=== PATIENT | female | born 1945 | race Caucasian/White ===

== ENCOUNTER → 2023-04-01 | Outpatient (CLI) | payer MEDICARE, SELFPAY ==
[2023-04-01 17:34] LABS: Absolute Lymphocyte Count 2.53 X10^3/uL (0.83-4.51); Absolute Neutrophil Count 7.1 X10^3/uL (2.0-7.7); Basophil# 0.06 X10^3/uL; Basophil% 0.6 % (0-1); Eosinophil# 0.29 X10^3/uL; Eosinophils% 2.7 % (0-5); Hematocrit 47.8 % (37-47); Hemoglobin 14.9 g/dL (12.0-15.0); Lymphocyte # 2.53 X10^3/ul (0.83-4.51); Lymphocyte % 23.5 % (19-41); Mean Corp Hgb Conc 31.2 g/dL (32-36); Mean Corpuscular Hgb 28.7 pg (27.0-32.0); Mean Corpuscular Volume 91.9 fL (81-99); Mean Platelet Vol. 9.5 fl (6.2-12.0); Monocyte# 0.73 X10^3/uL; Monocyte% 6.8 % (0-10); NRBC Flagged by Analyzer 0 % (0-5); Neutrophil # 7.07 X10^3/uL (2.7-7.7); Neutrophil % 65.6 % (47-70); Platelet Count 364 K/mm3 (150-450); RBC Distribution Width CV 13.7 % (11.6-14.6); RBC Distribution Width SD 46.4 fl (35.1-43.9); White Blood Count 10.8 K/mm3 (4.4-11.0)
[2023-04-01 17:55] LABS: Erythrocyte Sedimentation Rate 42 mm/hr (0-30)
== END | disposition home or self-care (01) ==
LOC: MTLAB 16:14
PROVIDERS: Referring Provider Ophthalmology; Visit Provider Ophthalmology
DX: H35.62 Retinal hemorrhage, left eye (principal)
CPT/HCPCS: 36415; 85025; 85652; 86140

== ENCOUNTER → 2024-10-21 | Outpatient (CLI) | payer MEDICARE, SELFPAY ==
[2024-10-21 18:26] LABS: ALB/GLOB Ratio 1.2 RATIO (0.9-2.4); AST(SGOT) 15 U/L (<=31); Alanine Aminotransfer ALT/SGPT 12 U/L (<=34); Albumin, Serum 3.7 g/dL (3.4-4.8); Alkaline Phosphatase 74 U/L (35-104); Anion Gap 11 (5-15); BUN 24 mg/dL (4-19); BUN/Creat Ratio 18.6 RATIO (10-20); Calcium,Total 8.9 mg/dL (7.6-11.0); Carbon Dioxide 25.4 mmol/L (21.0-32.0); Chloride 104 mmol/L (98-108); Cholesterol 137 mg/dL (<=200); Creatinine, Serum 1.28 mg/dL (0.70-1.20); EST Glomerular Filtration Rate 42 (>60); Globulin 3.1 g/dL (2.2-4.2); Glucose 85 mg/dL (70-99); High Density Lipoprotein 45 mg/dL; Low Density Lipoprotein Calc. 71 mg/dL; Potassium 4.1 mmol/L (3.3-5.1); Protein, Total 6.8 g/dL (5.9-8.4); Sodium Level 140 mmol/L (133-145); Total Bilirubin 0.17 mg/dL (0.00-1.30); Triglycerides 106 mg/dL; Very Low Density Lipoprotein 21 mg/dL (5-40); cholesterol:hdl ratio screen 3.08
== END | disposition home or self-care (01) ==
LOC: MTLAB 16:59
PROVIDERS: PCP Family Medicine; Referring Provider Family Medicine; Visit Provider Family Medicine
DX: I10 Essential (primary) hypertension (principal)
CPT/HCPCS: 36415; 80053; 80061; 83735

== ENCOUNTER 2025-01-17 15:00 | Outpatient (RCR) | payer MEDICARE, SELFPAY ==
--- NOTE | 2024-12-06 17:21 | HP.PTEVAL_ITS ---
Patient's Visit Information Visit Information Visit Information: ANGELES HUTCHINSON is a 79 year old F referred to Physical Therapy by Dr. Jim Adair MD with a diagnosis of GENERALIZED WEAKNESS. Date of Evaluation: 12/06/24 Physical Therapist: Kameron Way, PT, Cert MDT, OCS Visit Plan Frequency: 2x /Week Duration: 4 Weeks Plan: PT INTERVENTIONS PROGRESSIVE BALANCE TRAINING ,FUNCTIONAL STRENGTHENING ,BLE STRENGTHENING AND AEROBIC EX'S/ENDURANCE PROGRAM Subjective Subjective: This 79 y/o female presents to physical therapy with generalized weakness . Patient visiting daughter had [place] September 17 ,then had CVA occipital x3 in [place]. Patient was hospitalized~ 2 weeks . Patient had no Rehab. Seen DR in [place] lives with Daughter due to comornities. Patient visual deficits and tinnitus many years affects hearing. Patient currently has weakness and impaired gait. No falls and no device with gait. Patient showering on own . patient dressing . Daughter does all the cooking cleaning. Patient has 24 care supervsion/Patient denies pain. Patient lives 1 story with one step. Patient ahs tub shower set up. Patient condition affects QOL/gait/ADLS. SOCAIL: lives with daughter Objective Objective: POSTURE: mild forward posture GAIT: reciprocal pattern slight unsteady slow kip STAIRS: one step at time with rail FLEXABILITY: hamstrings min tight MMT: quads/hams 4/5 ,hip flexion 4-/5 ankle 5/5 Balance/Special Test Scores Functional Gait Assessment Score: 20 % Disability: 33.3400 CATSIB Score (Max score 120 seconds): 74 Lower Extremity Functional Score: 34 30 Second Chair Rise Test Seconds: 10 Goals Goal 1:: Patient to be I with HEP Goal Time Frame: 4-6 Weeks Goal 2:: Patient to demonstrate 50% improvement with gait adn function. Goal Time Frame: 4-6 Weeks Goal 3:: Patient to improve LFES score by 5-8 points to improve QOL and function Goal Time Frame: 4-6 Weeks Goal 4:: Patient to improve 30sec sit-stand by 3-4 reps to improve functional strength Goal Time Frame: 4-6 Weeks Goal 5:: Patient will improve CATSIB by 5 points to improve gait Goal Time Frame: 4-6 Weeks Goal 6:: Patient to improve functional gait assessment score by 5 points to decrease risk of falls Goal Time Frame: 4-6 Weeks Rehabilitation Potential Physical Therapy Diagnosis: This patient has generalized weakness impairs gait and balance from [place] and CVA thus benefit from skilled PT Rehabilitation Potential: Fair Anticipated Interventions Patient/Client Instruction: Educate patient on: Condition and Plan of Care For the Purpose of:: To improve muscle performance and motor function, To improve ability to perform ADL's, To increase tolerance to activity/condition/position, To improve performance and independence with ADL's, To improve ability of physical actions for home/community/work/leisure, To improve gait and locomotor functions, To improve endurance, To improve balance and To improve tolerance to ADL's Therapeutic Exercise to Include: Strength training, Endurance training, Balance training and Gait and locomotor training Comment: BLE For the Purpose of:: To improve muscle performance and motor function, To improve ability to perform ADL's, To increase tolerance to activity/condition/position, To improve ability of physical actions for home/community/work/leisure, To improve endurance, To improve balance and To improve tolerance to ADL's Text: Thank you for the opportunity to evaluate your patient. For Medicare and Medicare HMO plans, please review the plan of care and approve it. It will need to be FAXED BACK to us at [phone] for Medicare purposes. For Medicare only, by signing this I certify the plan of care. Please let me know if there are questions or concerns regarding this plan of care. Physician Sign ature: Date:
--- NOTE | 2024-12-20 11:41 | HP.SP.EV_ITS ---
Visit History Visit Info Date of Eval: 12/13/24 Today is Visit #: 1 House Wirer Helper: ARELIS History Attending Doctor: Referring Doctor: Reason for Referral: GENERAL WEAKNESS. RX HERE Date of Onset of Diagnosis: September 17, 2024 Previous speech therapy: Yes Results: After first stroke for expressive language with issues resolved. She was independent. Family reported no speech therapy after recent strokes. Other Relevant Medical History/Diagnoses/Surgery: Patient had CVA 4 years ago. COPD, cataracts In September she had a [place] then within one week she had 3 CVAs. One was on the Right and a second on the left occipital sides. The third was the day she left the hospital but not identified as right or left per daughter. She spent 15 days in the hospital in [place], where she was living. She now lives with her daughter. Her vision was impacted on the right side with peripheral vision issues. She is hard of hearing without the use of hearing aids. Medications related to this diagnosis: Blood pressure, cholesterol meds, blood thinner Diagnosis Diagnosis: Mild aphasia and mild to moderate cognitive deficits. Pain Is pain an issue with your current prescribed condition?: No Personal Preferred language: French Objective Cog/Ling/Com Test Administered Swysumdec-Ircpfaeegm-Iladjsxwdqzyj Assessment Administered: Yes Fpnzdacxf-Zjbjkvmidv-Hptadgfdzpoby Assessment: Cognitive ? Linguistic skills were evaluated using patient/family interview, skilled observation and informal evaluation through tasks completed by the patient. Orientation Orientation: Person and Birthdate Answer Yes/No Questions Simple: WNL Complex: WNL Comments Comments: Patient unable to say day of the week. She would not identify between December or May. She was unable to say the year but when told 2024 she said she was thinking 18 something Unable to tell her age. Naming Responsive naming: [facility] Naming in categories: Moderate Conversational Tasks Conversational Tasks: Mild Comments: Noted she had times of difficulty with explaining her thoughts. Several times during the session she stopped speaking as she was frustrated. She stated she can't get it out. She was only able to list 2 foods when given a category. Comments Comments: At times her speech seemed slower than typical and had a mildly monotone quality. Oral Reading Sentences: WFL Cognitive Linguistic Supervision/Saftey Awareness of deficits: Moderate Being left home alone: Moderate Managing medications: Severe Managing finances: Severe Executive Function Comments Comments: Currently, the patient does light housework/yardwork. Her daughter pays the bills, completes medication management and cooking tasks. The patient exhibits frustration with communication deficits. She exhibited anomia during the session which halted communication. The patient was not oriented to date/day and daughter reported that this causes difficulty at home also. Recommend a memory book/ orientation book to help the patient be aware of current information. Reference: Neuro-QoL instrument Radiation Oncology Patient Plan Plan Plan: Speech therapy is warranted for Cognitive linguistic deficits. She exhibited aphasia with anomia and also orientation/recall deficits. Recommendations Treatment Warranted: Yes Treatment Warranted: Receptive/ Expressive Language and Cognition Progress Prognosis: Good Frequency Frequency: 1x/Week Duration: 2 Months Visits in this POC: 8 Goals that are Established Determination:: Goals will be added/modified as deemed necessary and appropriate. Therapy will be discontinued when results of re-evaluation indicate therapy is no longer needed or lack of progress has been documented. Goal #1-5 Goal #1: Martine will demonstrate an understanding and utilize anomia strategies on 3/5 trials with moderate cues from communication partner on 2/3 consecutive sessions. Goal #2: Family will demonstrate an understanding and utilize orientation strategies on 3/5 trials with moderate cues 2/3 consecutive sessions. Goal #3: Further testing as necessary with goals added as necessary and appropriate. Education Patient has Indicated that the Following Identified Educational Needs: Cognitively Impaired Patient Instruction Patient Education: Diagnosis, Treatment Plan and Goals Person Taught: Patient and Family Response to teaching: Verbalize Understanding and Reinforcement Needed
--- NOTE | 2025-03-09 09:38 | HP.SP.DC_ITS ---
ST Discharge Summary Discharged: Discharge: Martine Monaco is discharged from [facility] as of March 09, 2025. She was evaluated on 12/13/24 for aphasia and cognition. She attended a total of 3 visits and cancelled multiple visits. Last session completed was January 17, 2025 with no further contact by family to continue therapy. Her goals focused on understanding and utilizing anomia and recall strategies. Patient was provided with multiple recall strategies including using a board for orientation that the daughter updated daily along with her daily schedule of events, using a memory book, and making a daily task list. Patient was unable to recall any of these strategies or any orientation strategies from week to week. Daughter reported that Patient hid her memory book and did not want to use it. Patient also reported that she doesn?t care if she remembers anything. Please see daily notes and reports for complete details. Thank you for allowing me to participate in the care of this patient.
== END 2025-01-17 19:00 | disposition home or self-care (01) ==
LOC: SP 15:00
PROVIDERS: PCP Family Medicine; Referring Provider Family Medicine; Visit Provider Family Medicine
DX: R53.1 Weakness (principal); I69.319 Unspecified symptoms and signs involving cognitive functions following cerebral infarction; I69.320 Aphasia following cerebral infarction
CPT/HCPCS: 92507; 92523; 97110; 97162

== ENCOUNTER → 2025-01-17 | Outpatient (CLI) | payer MEDICARE, SELFPAY ==
[2025-01-17 18:16] LABS: AST(SGOT) 17 U/L (<=31); Alanine Aminotransfer ALT/SGPT 10 U/L (<=34); Albumin, Serum 3.7 g/dL (3.4-4.8); Alkaline Phosphatase 73 U/L (35-104); Anion Gap 11 (5-15); BUN 31 mg/dL (4-19); BUN/Creat Ratio 21.3 RATIO (10-20); Calcium,Total 9.2 mg/dL (7.6-11.0); Carbon Dioxide 26.6 mmol/L (21.0-32.0); Chloride 102 mmol/L (98-108); Cholesterol 194 mg/dL (<=200); Globulin 3.3 g/dL (2.2-4.2); Glucose 89 mg/dL (70-99); Low Density Lipoprotein Calc. 124 mg/dL; Potassium 4.0 mmol/L (3.3-5.1); Triglycerides 137 mg/dL; Very Low Density Lipoprotein 27 mg/dL (5-40); cholesterol:hdl ratio screen 4.52
== END | disposition home or self-care (01) ==
LOC: MFPLAB 14:47
PROVIDERS: PCP Family Medicine; Referring Provider Family Medicine; Visit Provider Family Medicine
DX: I10 Essential (primary) hypertension (principal)
CPT/HCPCS: 36415; 80053; 80061